=== PATIENT | male | born 1950 | race Caucasian/White ===

== ENCOUNTER → 2019-08-12 | Outpatient (CLI) | payer BC ==
[~2019-08-12] MED LIST: DILT180C64 PO; HYDR-2765 PO; IOHEXOL 180 MG/ML 10 ML VIAL. ONE; LISI1TAB19 PO; methylPREDNISolone ACETATE 40 MG/ML VIAL. ONE; methylPREDNISolone ACETATE 80 MG/ML VIAL. ONE
--- NOTE | 2019-08-12 18:40 | PAIN ---
DATE OF SERVICE: 08/12/2019 INITIAL CONSULTATION FOR PAIN CLINIC CHIEF COMPLAINT: Low back and left greater than right lower extremity pain. HISTORY OF PRESENT ILLNESS: The patient is a 68-year-old male who presents with history of pain in the low back and bilateral lower extremities for many years since about 1984 with injury on the job. At that time, the pain has been on and off in intensity over the years, but the patient reports a truck load of frozen food fell on him. 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 The patient had a kyphoplasty after vertebral compression fracture last year as well from that incident. The patient reports now the pain is mainly in the low back itself, is difficult with driving, walking, standing positions, better with sitting or lying down, but awakens him at least 4 times a night from sleep. Reports it does affect his bowel or bladder control, but no incontinence. The patient reports it affects his ability to walk as well, but not using any assistive devices. The patient has had trigger point injections over the years, physical therapy in the past, all of which have helped, also is taking [id number] anti-inflammatories as well as hydrocodone, which does decrease the pain by about 50% as well. The patient reports the pain is constant in the low back, radiating to posterior gluteus, posterior thigh, posterior calf on the left side, into the posterior gluteus on the right side as well as across the low back and some pain in the mid back between the shoulders also. The patient reports the pain changes during the day, gets worse with activity, also describes he has numbness and radiating pain in the leg, especially on the left side. The patient rates his disability rating from 0-10, 10 being the worst, is a 10 with family and home responsibilities, recreation and occupation, 8 with social activity, 5 with sexual behavior, 6 with self-care and 5 with life support activities. The patient did have MRI scan of the lumbar spine, but was dated in 2013 showing moderate at L4-5, L3-4 and L5-S1 central canal narrowing due to mild disk disease and congenitally small lower lumbar central canal, mild right and moderate left L5-S1 neural foraminal stenosis due to mild endplate degeneration facet arthropathy, mild bilateral L3-4 and [id number] bilateral L4-5 neural foraminal narrowing. The patient reports no loss of motor function, but significant fatigability, especially in the left lower extremity. PAST MEDICAL HISTORY: Significant for hypertension, cigarette smoking 50+ years, arthritis, headaches, previous kyphoplasty and cholecystectomy. CURRENT MEDICATIONS: Include lisinopril, diltiazem, and hydrocodone. ALLERGIES: The patient has no known drug allergies. FAMILY HISTORY: Significant for no major medical problems or conditions that he is aware of. SOCIAL HISTORY: The patient reports he does not drink alcohol or very rarely. Does not use any illegal, illicit or recreational drugs. Smokes about 1 pack a day of cigarettes, has for 50+ years. The patient is single, lives locally in [place], [place] and has his own [employer]. REVIEW OF SYSTEMS: The patient's review of systems is positive for those items mentioned in history of present illness. All systems reviewed and otherwise negative. It is complete, full and well documented on the patient's chart. PHYSICAL EXAMINATION: VITAL SIGNS: The patient's blood pressure 155/92, pulse 114, respirations 18, temperature is 98.3 degrees Fahrenheit. Height is 6 feet, weight is 218 pounds. GENERAL: The patient is awake, alert, oriented, appropriate, very pleasant demeanor. HEENT: Shows normocephalic, atraumatic. Extraocular movements are intact and symmetrical. Oral cavity shows mucous membranes moist and pink. Dentition is intact. NECK: Shows anterior throat supple without palpable lymphadenopathy noted. Swallow reflex symmetrical. CHEST: Shows normal on inspection. Breath sounds clear to auscultation bilaterally. HEART: Shows S1, S2 clear. No murmurs auscultated. ABDOMEN: Soft, nontender, nondistended. No palpable organomegaly is noted. No rebound or guarding demonstrated. BACK: Shows spine grossly in the midline. Normal appearing thoracic kyphosis and lumbar lordotic curvature. Lumbar paraspinous muscle shows symmetrical on inspection, on palpation shows some moderate tenderness bilaterally diffusely without radiation. The patient has good rotational motion of lumbar spine, both laterally greater than 10 degrees right and left as well as extension greater than 10 degrees, forward flexion 45 degrees without significant pain reported, some mild tenderness with extension only. EXTREMITIES: Lower extremities show deep tendon reflexes 2+ in the patellar, 1+ tendo-calcaneus tendons. Motor exam is strong with 5/5 dorsiflexion, extension, quadriceps and hamstring flexion and symmetrical. Peripheral pulses are 1+ posterior tibia. No peripheral edema is noted bilaterally. The patient's straight leg raise noted to be positive on the left at 45 degrees, but negative on the right. Gaenslen's and Julio's maneuvers are negative bilaterally. The patient is able to stand, stand on his toes without difficulty or loss of balance, walks with his normal appearing gait, does not appear to favor the right or left lower extremity significantly, not using any assistive devices to ambulate as well. SKIN: The patient's skin shows warm and dry, good turgor. No edema. No sores, rashes or bruising throughout. IMPRESSION: 1. This is a 68-year-old male with long history of low back, now radicular pain in the left lower extremity greater than the right for the past year or so, worsening. 2. MRI scan of lumbar spine as noted. 3. Arthritis. 4. Hypertension. 5. Cigarette smoking. PLAN: Options were discussed with the patient including conservative medical managements, physical therapies, interventional techniques and he would like to pursue interventional techniques. We discussed a lumbar epidural steroid injection using description as well as anatomical models to describe the procedure. Risks were then discussed including, but not limited to bleeding, infection, possibility of epidural hematoma, subsequent neurological compromise, dural puncture, headaches, spinal cord and/or nerve damage, side effects of steroid medication and poor results regarding pain control. The patient understands and wished to proceed. The patient will return to clinic in approximately 2 weeks for followup. He was counseled as to return appointment, activity level, and side effects to be aware of. DIAGNOSES: Lumbar radiculopathy with lumbar degenerative disk disease, lumbar spinal stenosis. PROCEDURE: Lumbar epidural steroid injection, translaminar approach at the L5-S1 level using C-arm fluoroscopic guidance under sterile prep and drape using local anesthetic. MEDICATION INJECTED: A total of 120 mg Depo-Medrol plus 10 mL of preservative-free normal saline and 2 mL of contrast. CONDITION AT DISCHARGE: Stable. The patient tolerated the procedure well, had no complications. SHONDA RAMIREZ MD DR: CLIFTON/raghu JOB#: [id number] / [id number]
== END ==
LOC: PNCL 10:15
PROVIDERS: ATTEND Anesthesiology
DX: M51.16 Intervertebral disc disorders with radiculopathy, lumbar region (principal); M48.061 Spinal stenosis, lumbar region without neurogenic claudication; I10 Essential (primary) hypertension; F17.210 Nicotine dependence, cigarettes, uncomplicated; Z87.39 Personal history of other diseases of the musculoskeletal system and connective tissue; Z90.49 Acquired absence of other specified parts of digestive tract; Z98.890 Other specified postprocedural states
CPT/HCPCS: 62323; J1030; J1040; Q9965

== ENCOUNTER → 2019-09-03 | Outpatient (CLI) | payer BC ==
[~2019-09-03] MED LIST changes: +LIDOCAINE 1% PF 2 ML VIAL. ONE
--- NOTE | 2019-09-03 14:54 | PAIN ---
DATE OF SERVICE: 09/03/2019 PROGRESS NOTE FOR PAIN CLINIC DIAGNOSES: Lumbar radiculopathy with lumbar degenerative disk disease, lumbar spinal stenosis. HISTORY OF PRESENT ILLNESS: The patient is a 68-year-old male who returns for follow up status post lumbar epidural steroid injection x1. The patient reports about 75% improvement in his low back pain. His main complaint is his mid upper back pain. The patient has history of compression fractures in this region status post vertebroplasty, but still significant pain. The patient reports that he is doing much better with increasing his activity with greater ease and comfort, walking greater distances with ease and comfort, doing work activities at home and some remodeling parts of his house with greater ease as well. The patient reports his pain is mainly in the mid upper back now, where it is a 7 on a scale of 10 at all times of worst, average and at its least and is a 7 today. The patient reports it is sharp at times, feels like bee stinging between the shoulder blades and sometimes unbearable. The patient reports no new motor or sensory deficits, no new bowel or bladder incontinence or other complaints. Reports his low back and legs are doing much better, sleeping well at night, does not awaken him from sleep. PHYSICAL EXAMINATION: VITAL SIGNS: The patient's blood pressure 146/93, pulse 114, respirations 16, temperature 98.3 degrees Fahrenheit, weight is 230 pounds. GENERAL: The patient is awake, alert, oriented, appropriate, very pleasant demeanor. HEENT: Head shows normocephalic, atraumatic. Extraocular movements are intact and symmetrical. Oral cavity: Mucous membranes moist and pink. Dentition is intact. NECK: Shows anterior throat supple without palpable lymphadenopathy noted. Swallow reflex symmetrical. CHEST: Shows normal on inspection. Breath sounds clear to auscultation bilaterally. HEART: Shows S1, S2 clear. No murmurs auscultated. ABDOMEN: Soft, nontender, nondistended. No palpable organomegaly is noted. No rebound or guarding demonstrated. BACK: Shows spine grossly in the midline. Normal appearing thoracic kyphosis and lumbar lordotic curvature is slightly flattened. Thoracic paraspinous muscle shows symmetrical with palpation in the mid upper distribution of the paraspinous musculature shows moderately tender bilaterally and some minor tenderness over the spinous processes themselves in the mid thoracic distribution without radiation. The patient's low back shows symmetrical lumbar paraspinous musculature without radiation on palpation as well but some mild tenderness in the middle and lower distribution of paraspinous muscles. EXTREMITIES: The patient's lower extremities show deep tendon reflexes 2+ in the patellar, 1+ tendo-calcaneus tendons. Motor exam is strong with 5/5 dorsiflexion, extension, quadriceps and hamstring flexion. Peripheral pulses are 1+ posterior tibia. No peripheral edema is noted. Options were discussed with the patient. The patient's old chart was reviewed as his current medication regimen updated. Current review of systems updated today as well. We will proceed with a thoracic epidural steroid injection today with fluoroscopic guidance. Risks were again discussed including, but not limited to bleeding, infection, possibility of epidural hematoma, subsequent neurological compromise, dural puncture, headaches, spinal cord and/or nerve damage, side effects of steroid medication and poor results regarding pain control. The patient understands and wished to proceed. The patient will return to clinic in approximately 2 weeks for followup. He was counseled for his return appointment, activity level and side effects to be aware of. DIAGNOSIS: Thoracic compression fracture. PROCEDURE: Thoracic epidural steroid injections using C-arm fluoroscopic guidance under sterile prep and drape using local anesthetic. MEDICATION INJECTED: Total of 120 mg of Depo-Medrol plus 10 mL of preservative-free normal saline and 2 mL of contrast at the T5-T6 level using C-arm fluoroscopic guidance. CONDITION AT DISCHARGE: Stable. The patient tolerated the procedure well, had no complications. SHONDA RAMIREZ MD DR: CLIFTON/raghu JOB#: [id number] / [id number]
== END ==
LOC: PNCL 13:06
PROVIDERS: ATTEND Anesthesiology
DX: M48.54XA Collapsed vertebra, not elsewhere classified, thoracic region, initial encounter for fracture (principal); M51.16 Intervertebral disc disorders with radiculopathy, lumbar region; M48.061 Spinal stenosis, lumbar region without neurogenic claudication
CPT/HCPCS: 62321; J1030; J1040; Q9965

== ENCOUNTER → 2019-12-22 | Outpatient (CLI) | payer BC ==
[~2019-12-22] MED LIST changes: -LIDOCAINE 1% PF 2 ML VIAL. ONE
--- NOTE | 2019-12-22 10:13 | PAIN ---
DATE OF SERVICE: 12/22/2019 PROGRESS NOTE FOR PAIN CLINIC DIAGNOSES: 1. Lumbar radiculopathy with lumbar degenerative disk disease and lumbar spinal stenosis. 2. Thoracic compression fracture. HISTORY OF PRESENT ILLNESS: The patient is a 69-year-old male who returns for followup status post lumbar epidural steroid injection x 1 and thoracic epidural steroid injection x 1, last seen on 09/03/2019. The patient did very well with about 75% improvement with his low back and 60% improvement with the upper back. The patient reports he did very well and "felt like I was 19 years old" for about 2 months. The patient reports the pain returned and he was increasing his activity with greater ease and comfort, doing household activities, walking activities with greater distances, hunting quite frequently. The patient reports he did very well. The pains are returning now; however, over the past 3-4 weeks, the patient reports it is in the low back, bilateral lower extremities, posterior gluteus, posterior thigh, posterior calf, worse slightly on the right than the left, but present bilaterally. The patient reports it is worse with walking, standing, changing positions, better with sitting or lying down, but awakens him from sleep about every 2-5 hours over the past month or so. The patient reports it is 10 on a scale of 10 at all times least, worst and average and a 10 today. The patient reports it is unbearable at times, low back is aching and sharp, also pain in the knees, which is aching as well. PHYSICAL EXAMINATION: VITAL SIGNS: The patient's blood pressure 144/87, pulse 119, respirations 18, temperature 98.0 degrees Fahrenheit, weight is 241 pounds. GENERAL: The patient is awake, alert, oriented, appropriate, very pleasant demeanor. HEENT: Shows normocephalic, atraumatic. Extraocular movements are intact and symmetrical. Oral cavity: Mucous membranes moist and pink. Dentition is intact. NECK: Shows anterior throat supple without palpable lymphadenopathy noted. Swallow reflex is symmetrical. CHEST: Shows normal on inspection. Breath sounds are coarse, but clear bilaterally. HEART: Shows S1, S2 clear. No murmurs auscultated. ABDOMEN: Soft, nontender, nondistended. BACK: Shows spine grossly in the midline. Normal appearing thoracic kyphosis and some slight flattening of lumbar lordotic curvature. Lumbar paraspinous muscle shows symmetrical on inspection, with palpation shows some moderate tenderness diffusely bilaterally going diffusely without significant radiation. The patient has good rotational motion of lumbar spine, both laterally as well as extension and flexion without significant difficulty, but with some moderate tenderness with extension of the lumbar spine, greater than 10 degrees with pain bilaterally in the low back, but not radiating to the lower extremities. It is better with forward flexion at 45 degrees which the patient performs without difficulty. EXTREMITIES: The patient's lower extremities show deep tendon reflexes 2+ in the patellar and 1+ tendo calcaneus tendons are equal. Motor exam is strong with 5/5 dorsiflexion, extension, quadriceps and hamstring flexion symmetrical. Peripheral pulses are 1+ posterior tibia. No peripheral edema is noted. Options were discussed with the patient. The patient's old chart was reviewed as his current medication regimen updated. Current review of systems updated today as well. We will proceed with a lumbar epidural steroid injection today with fluoroscopic guidance. Risks were again discussed including, but not limited to bleeding, infection, possibility of epidural hematoma, subsequent neurological compromise, dural puncture, headaches, spinal cord and/or nerve damage, side effects of steroid medication and poor results regarding pain control. The patient understands and wished to proceed. The patient will return to clinic in approximately 2 weeks for followup. He was counseled on return appointment, activity level and side effects to be aware of. DIAGNOSES: Lumbar radiculopathy with lumbar degenerative disk disease, lumbar spinal stenosis. PROCEDURE: Lumbar epidural steroid injection, translaminar approach L5-S1 level using C-arm fluoroscopic guidance under sterile prep and drape using local anesthetic. MEDICATION INJECTED: A total of 120 mg Depo-Medrol plus 10 mL of preservative-free normal saline and 2 mL of contrast. CONDITION AT DISCHARGE: Stable. The patient tolerated the procedure well, had no complications. SHONDA RAMIREZ MD DR: CLIFTON/raghu JOB#: [id number] / [id number]
== END ==
LOC: PNCL 08:03
PROVIDERS: ATTEND Anesthesiology
DX: M51.16 Intervertebral disc disorders with radiculopathy, lumbar region (principal); M48.061 Spinal stenosis, lumbar region without neurogenic claudication
CPT/HCPCS: 62323; J1030; J1040; Q9965

== ENCOUNTER → 2020-01-05 | Outpatient (CLI) | payer BC ==
[~2020-01-05] MED LIST changes: +BUPIVACAINE MPF 0.25% 10 ML VIAL. ONE
--- NOTE | 2020-01-05 08:58 | PAIN ---
DATE OF SERVICE: 01/05/2020 PROGRESS NOTE FOR PAIN CLINIC DIAGNOSES: Lumbar radiculopathy with lumbar degenerative disk disease, lumbar spinal stenosis, and lumbar and lumbosacral spondylosis. HISTORY OF PRESENT ILLNESS: The patient is a 69-year-old male who returns for followup status post lumbar epidural steroid injection x 2 and thoracic epidural steroid injection x 1. The patient reports doing very well with about a 60% improvement overall, still some pain in the low back on the right side greater than the left, but present bilaterally. The patient reports no longer radiating down the lower extremity like it was previously, but still very tender in the low back itself with walking, standing, changing positions, especially with sitting and arching a little back. The patient reports it does not awaken him from sleep at night, much better with lying down; worse with walking, standing, especially with standing from a sitting position. The patient reports pain is a 7 on a scale of 10 at its worst over the past week, 5-6 on average, 5 at its least, and is a 6 today. The patient reports it is on and off in intensity, sharp and shooting at times across the low back and dull and aching in the low back, worse with extension of the lumbar spine. PHYSICAL EXAMINATION: VITAL SIGNS: The patient's blood pressure 135/98, pulse 119, respirations 18, temperature 97.5 degrees Fahrenheit. Height 6 feet 2 inches, weight is 236 pounds. GENERAL: The patient is awake, alert, oriented, appropriate, very pleasant demeanor. HEENT: Head normocephalic, atraumatic. Extraocular movements are intact and symmetrical. Oral cavity: Mucous membranes moist and pink. Dentition is intact. NECK: Shows anterior throat supple without palpable lymphadenopathy noted. Swallow reflex symmetrical. CHEST: Shows normal on inspection. Breath sounds clear to auscultation bilaterally. HEART: Shows S1, S2 clear. ABDOMEN: Soft, nontender, nondistended. BACK: Shows spine grossly in the midline. Normal-appearing thoracic kyphosis, some minor flattening of lumbar lordotic curvature. Lumbar paraspinous muscle shows symmetrical on inspection, with palpation shows some moderate tenderness diffusely bilaterally, but only diffusely without significant radiation. EXTREMITIES: The patient's lower extremities show deep tendon reflexes at 2+ in the patellar, 1+ tendo-calcaneus tendons. Motor exam is strong with 5/5 dorsiflexion, extension, quadriceps and hamstring flexion and symmetrical. Peripheral pulses are 1+ posterior tibia. No peripheral edema is noted. The patient's back shows good rotational motion of lumbar spine, but with extension shows some moderate tenderness especially on the right side in the low back, but not as much on the left, but present bilaterally. It is better with forward flexion at 45 degrees. Options were discussed with the patient. The patient's old chart was reviewed as well as his current medication regimen updated. Current review of systems updated today as well. We will proceed with bilateral L4-L5 and L5-S1 facet joint injections today with fluoroscopic guidance. Risks were discussed including but not limited to bleeding, infection, possibility of epidural hematoma, subsequent neurological compromise, dural puncture, headaches, spinal cord and/or nerve damage, side effects of steroid medication, and poor results regarding pain control. The patient understands and wished to proceed. The patient will return to clinic in approximately 2 weeks for followup. He was counseled on return appointment, activity level, and side effects to be aware of. DIAGNOSIS: Lumbar and lumbosacral spondylosis. PROCEDURE: Bilateral L4-L5 and L5-S1 facet joint injection using C-arm fluoroscopic guidance under sterile prep and drape using local anesthetic. MEDICATION INJECTED: A total of 4 mL of 0.25% bupivacaine, 2 mL contrast of contrast, 120 mg Depo-Medrol CONDITION AT DISCHARGE: Stable. The patient tolerated procedure well, had no complications. SHONDA RAMIREZ MD DR: CLIFTON/raghu JOB#: [id number] / [id number]
== END ==
LOC: PNCL 08:03
PROVIDERS: ATTEND Anesthesiology
DX: M51.16 Intervertebral disc disorders with radiculopathy, lumbar region (principal); M48.061 Spinal stenosis, lumbar region without neurogenic claudication; M47.817 Spondylosis without myelopathy or radiculopathy, lumbosacral region
CPT/HCPCS: 64493; 64494; 64495; J1030; J1040; J3490; Q9965